=== PATIENT | male | born 1990 | race Caucasian/White ===

== ENCOUNTER 2017-01-09 11:59 | Emergency (ER) | payer MEDICAID ==
[~2017-01-09] VITALS: Ht 185.4 cm; Wt 109.0 kg
[2017-01-09] MEDS ORDERED: BACITRACIN ZINC OINT UDPKT TOP ONE (12:45)
[2017-01-09] MEDS ORDERED: KETOROLAC 60MG/2ML VIAL IM ONE (12:45)
[2017-01-09] MEDS ORDERED: TETANUS, DIPHTHERIA, PERTUSSIS VAC/PF 0.5ML (>7YR OLD) IM ONE (12:45)
[2017-01-09 13:13] VITALS: BP 136/78
== END 2017-01-09 14:39 | disposition home or self-care (01) ==
LOC: ER 12:22
DX: S61.451A Open bite of right hand, initial encounter (principal); W54.0XXA Bitten by dog, initial encounter; Y93.89 Activity, other specified; Y92.488 Other paved roadways as the place of occurrence of the external cause
CPT/HCPCS: 12001; 90471; 90715; 96372; 99284; A4217; J1885; X7700; Z7610

== ENCOUNTER 2017-01-14 08:36 | Emergency (ER) | payer MEDICAID, OTHER ==
[~2017-01-14] VITALS: Ht 185.4 cm; Wt 109.0 kg
[2017-01-14 08:42] VITALS: BP 132/83
[2017-01-14] MEDS ORDERED: BACITRACIN ZINC OINT UDPKT TOP ONE (09:30)
== END 2017-01-14 10:34 | disposition home or self-care (01) ==
LOC: ER 09:13
DX: Z48.00 Encounter for change or removal of nonsurgical wound dressing (principal)
CPT/HCPCS: 99283; Z7610